=== PATIENT | female | born 1980 | race Two or more races ===

== ENCOUNTER → 2023-12-09 | Day surgery (SDC) | payer OTHER ==
[~2023-12-09] MED LIST: DIPHENHYDRAMINE HCL 50 MG/ML VIAL 1ML IV ONE; MIDAZOLAM HCL 2 MG/2 ML VIAL IV ONE; ONDANSETRON HCL 2 MG/ML VIAL IV ONE; fentaNYL CITRATE 50 MCG/ML AMPUL IV PUSH ONE
== END | disposition home or self-care (01) ==
LOC: ADM 12-03 13:00 → AMB-ENDOS 10:39
PROVIDERS: ATTEND Colon & Rectal Surgery
DX: K62.0 Anal polyp (principal); Z88.6 Allergy status to analgesic agent; K64.8 Other hemorrhoids